=== PATIENT | male | born 2000 | race Two or more races ===

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

== ENCOUNTER 2022-05-26 17:42 | Emergency (ER) | payer MEDICAID ==
[~2022-05-26] VITALS: Ht 182.9 cm; Wt 83.0 kg
[2022-05-26] MEDS ORDERED: IBUP800T27 PO (20:49)
[2022-05-26 22:09] VITALS: BP 129/74
== END 2022-05-26 22:09 | disposition home or self-care (01) ==
LOC: ER 17:42
DX: S63.502A Unspecified sprain of left wrist, initial encounter (principal); S83.91XA Sprain of unspecified site of right knee, initial encounter; S00.31XA Abrasion of nose, initial encounter; Z79.1 Long term (current) use of non-steroidal anti-inflammatories (NSAID); V29.99XA Rider (driver) (passenger) of other motorcycle injured in unspecified traffic accident, initial encounter; Y93.89 Activity, other specified; Y92.89 Other specified places as the place of occurrence of the external cause; Y99.8 Other external cause status
CPT/HCPCS: 29125; 29505; 73110; 73562